=== PATIENT | female | born 2000 | race African-American/Black ===

== ENCOUNTER 2025-08-22 18:54 | Emergency (ER) | payer MEDICAID ==
[~2025-08-22] VITALS: Ht 157.5 cm; Wt 105.0 kg
[2025-08-22 19:09] VITALS: O2SAT 100
[2025-08-22 21:05] LABS: CREATININE 0.8 mg/dL (0.6-1.0)
[2025-08-22 21:06] LABS: UREA NITROGEN BLOOD 8 mg/dL (9-23)
[2025-08-22 21:07] LABS: BASOPHILS % 0.7 % (0.0-2.0); EOSINOPHILS % 0.6 % (0.0-5.0); HEMATOCRIT. 36.3 % (36.0-48.0); HEMOGLOBIN. 12.2 g/dL (12.0-16.0); LYMPHOCYTES % 30.7 % (20.0-50.0); MEAN PLATELET VOLUME 8.8 fl (7.4-10.4); MONOCYTES % 4.5 % (2.0-8.0); NEUTROPHILS % 63.5 % (40.0-76.0); PLATELET 271 x1000/uL (130-400); RED BLOOD CELL COUNT 4.33 mill/uL (4.2-5.4); RED CELL DISTRIBUTION WIDTH 13.1 % (11.6-14.6)
[2025-08-22 21:08] LABS: INR 0.9
[2025-08-22 21:08] LABS: CLARITY URINE CLEAR (CLEAR); COLOR URINE YELLOW (YELLOW); GLUCOSE URINE NEGATIVE (NEGATIVE); KETONES URINE NEGATIVE (NEGATIVE); LEUKOCYTE ESTERASE URINE 1+ (NEGATIVE); NITRITE URINE NEGATIVE (NEGATIVE); OCCULT BLOOD URINE 3+ (NEGATIVE); PH URINE 6.5 (4.5-8.0); PROTEIN URINE NEGATIVE (NEGATIVE); SPECIFIC GRAVITY URINE 1.016 (1.005-1.030); UROBILINOGEN URINE 0.2 E.U./dL (0.2-1.0)
[2025-08-22 21:28] LABS: BACTERIA URINE TRACE; RBC URINE 0-2 /hpf (0-2); SQUAMOUS EPITHELIAL CELL URINE FEW /lpf (RARE/1+); WBC URINE 0-2 /hpf (0-2)
[2025-08-22 22:54] LABS: ASPARTATE AMINOTRANSFERASE 17 IU/L (<34); BILIRUBIN DIRECT 0.1 mg/dL (<=3.0); BILIRUBIN TOTAL 0.5 mg/dL (0.1-1.0); PROTEIN TOTAL 7.4 g/dL (6.0-8.3)
[2025-08-22 23:51] LABS: B-HCG QUANTITATIVE 17739 mIU/mL (<6)
[2025-08-23 00:41] VITALS: BP 32/74; PULSE 85; RESP 20; TEMP 36.8; O2SAT 99
== END 2025-08-23 00:43 | disposition home or self-care (01) ==
LOC: ER 18:54
DX: O46.92 Antepartum hemorrhage, unspecified, second trimester (principal); N93.8 Other specified abnormal uterine and vaginal bleeding; R10.20 Pelvic and perineal pain unspecified side; Z3A.22 22 weeks gestation of pregnancy
CPT/HCPCS: 36415; 76801; 80048; 80076; 81003; 84702; 85025; 86850; 86900; 99284

== ENCOUNTER 2025-08-25 19:51 | Emergency (ER) | payer MEDICAID ==
[~2025-08-25] VITALS: Ht 157.5 cm; Wt 104.0 kg
[2025-08-25 19:56] VITALS: O2SAT 98
[2025-08-25] MEDS: ACETAMINOPHEN 500MG TABLET PO ONE (22:23)
[2025-08-25 22:52] LABS: BASOPHILS % 0.8 % (0.0-2.0); EOSINOPHILS % 0.5 % (0.0-5.0); HEMATOCRIT. 35.2 % (36.0-48.0); HEMOGLOBIN. 11.9 g/dL (12.0-16.0); LYMPHOCYTES % 28.3 % (20.0-50.0); MEAN PLATELET VOLUME 8.7 fl (7.4-10.4); MONOCYTES % 4.0 % (2.0-8.0); NEUTROPHILS % 66.4 % (40.0-76.0); PLATELET 261 x1000/uL (130-400); RED BLOOD CELL COUNT 4.18 mill/uL (4.2-5.4); RED CELL DISTRIBUTION WIDTH 12.6 % (11.6-14.6)
[2025-08-25 23:08] LABS: HCG SCREEN POSITIVE
[2025-08-25 23:09] LABS: CREATININE 0.8 mg/dL (0.6-1.0); UREA NITROGEN BLOOD 8 mg/dL (9-23)
[2025-08-25 23:22] LABS: B-HCG QUANTITATIVE 9106 mIU/mL (<6)
[2025-08-25] MEDS: MORPHINE SULFATE 4 MG/ML INJ (FOR IV/IM USE) IV ONE (23:51)
[2025-08-25] MEDS: ONDANSETRON HCL 4MG/2ML INJ IV ONE (23:52)
[2025-08-26 00:09] VITALS: TEMP 36.9
[2025-08-26 00:48] LABS: PLATELET 249 x1000/uL (130-400); RED BLOOD CELL COUNT 3.97 mill/uL (4.2-5.4); RED CELL DISTRIBUTION WIDTH 12.8 % (11.6-14.6)
[2025-08-26 03:06] VITALS: BP 125/55; PULSE 71; RESP 16; O2SAT 98
== END 2025-08-26 03:11 | disposition home or self-care (01) ==
LOC: ER 19:51 → CMPBEDREQ 08-27 10:47
DX: O03.9 Complete or unspecified spontaneous abortion without complication (principal); R10.20 Pelvic and perineal pain unspecified side; Z3A.10 10 weeks gestation of pregnancy
CPT/HCPCS: 99285; 96374; 76830; 76856; 96375; 80048; 84703; 84702; 85025; 36415; 85027; 86850; 86900; 86901; J2405; J2270